=== PATIENT | male | born 1965 | race Caucasian/White ===

== ENCOUNTER 2022-02-26 10:56 | Outpatient (CLI) | payer OTHER | END 2022-02-26 11:08 | disposition home or self-care (01) | LOC: RAD 10:56 | DX: I11.9 Hypertensive heart disease without heart failure (principal) ==

== ENCOUNTER 2022-03-23 19:43 | Emergency (ER) | payer OTHER ==
[~2022-03-23] VITALS: Ht 175.3 cm; Wt 83.9 kg
[2022-03-23] MEDS ORDERED: LIPITOR40 M1 PO (20:06)
[2022-03-23] MEDS ORDERED: CEFUROXIME500 MG PO (22:07)
== END 2022-03-23 22:16 | disposition home or self-care (01) ==
LOC: ER 19:43
DX: L03.114 Cellulitis of left upper limb (principal)

== ENCOUNTER 2023-11-08 09:23 | Emergency (ER) | payer OTHER ==
[~2023-11-08] VITALS: Ht 175.3 cm; Wt 79.4 kg
[~2023-11-08 09:23] MED LIST: CEFUROXIME500 MG PO; LIPITOR40 M1 PO
[2023-11-08] MEDS ORDERED: CHILDREN'S ASPI81 MG PO (09:59)
[2023-11-08] MEDS ORDERED: ATORVASTATIN CA10 MG PO (09:59)
== END 2023-11-08 15:04 | disposition home or self-care (01) ==
LOC: ER 09:24
DX: M79.661 Pain in right lower leg (principal); M79.671 Pain in right foot; E78.49 Other hyperlipidemia